=== PATIENT | female | born 1980 | race Caucasian/White ===

== ENCOUNTER → 2016-11-23 | Outpatient (CLI) | payer MEDICAID, OTHER ==
--- NOTE | 2016-11-23 15:10 | US ---
EXAMINATION TYPE: US OB <= 14 wk fetus DATE OF EXAM: 11/23/2016 2:24 PM COMPARISON: NONE CLINICAL HISTORY: Z36 Confirm Dates. Cramping EXAM PERFORMED: Transabdominal (TA) EXAM MEASUREMENTS: GESTATIONAL AGE / DATING Physician Established: not established Dates by LMP: (12 weeks/4 days) EDC: 06/03/17 Dates by First Scan: no prior exam Dates by Current Scan for: (12 weeks/4 days) EDC: 06/03/17 MATERNAL ANATOMY Uterus: 12.2 x 6.3 x 7.3cm Right Ovary: unable to visualize Left Ovary: 2.8 x 1.9 x 2.2cm Post CDS / Adnexa: appears wnl Presence of free fluid: no GESTATION / SURVEY CRL: 6.0cm (12 weeks/4 days) Yolk Sac (normal less than 6mm): 6.2mm Heart Rate: 163 bpm Rhythm: Normal IUP: Viable IUP Date of LMP: 08/27/16 Beta HcG (if available): unavailable TECHNOLOGIST IMPRESSION: Single viable IUP 12wks/4days with GRZEGORZ of 06/03/17. Hypoechoic area body of uterus = 3.7 x 3.7 x 3.6cm, possible fibroid. Unable to visualize right ovary. Yolk sac measuring up per limits of normal IMPRESSION: Viable intrauterine gestation with a gestational age of 12 weeks 4 days +/- 7 days. Estimated date of confinement based on this examination is 06/03/2017.
== END | disposition home or self-care (01) ==
LOC: RADUSWWP 13:59
PROVIDERS: ATTEND Obstetrics & Gynecology
DX: Z36 Encounter for antenatal screening of mother (principal); Z3A.12 12 weeks gestation of pregnancy
CPT/HCPCS: 76801

== ENCOUNTER → 2017-05-03 | Outpatient (CLI) | payer MEDICAID, OTHER ==
--- NOTE | 2017-05-03 12:51 | US ---
EXAMINATION TYPE: US OB anatomy transabd DATE OF EXAM: 05/03/2017 COMPARISON: 01/13/2017 HISTORY: 37-year-old female O36.63X0 LARGE FOR DATES TECHNIQUE: Transabdominal (TA) FINDINGS: EXAM MEASUREMENTS: GESTATIONAL AGE / DATING Physician Established: (36 weeks/0 days) EDC: 05/31/17 Dates by LMP: unknown Dates by First Scan: (35 weeks/4 days) EDC: 06/03/17 Dates by Current Scan for: (36 weeks/4 days) EDC: 05/27/17 SURVEY IUP: Single PLACENTA: Posterior PREVIA: No previa EMELINA: 16.5 cm Normal CERVICAL LENGTH (transabdominal: norm > 3.0cm): 3.9 cm BIOMETRY PRESENTATION: Vertex LIE: Longitudinal BPD: 9.0 cm 36 weeks / 4 days HC: 32.5 cm 36 weeks / 6 days AC: 32.5 cm 36 weeks / 3 days FL: 7.0 cm 36 weeks / 0 days ESTIMATED WEIGHT IN GRAMS: 2910 grams ESTIMATED WEIGHT IN LBS/OZS: 6 lbs. 7 oz. 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 Fibroid anterior uterine body as noted on prior exam, measuring 4.4 x 2.9 x 4.9cm today IMPRESSION: 1. Single live intrauterine with established gestational age of 36 weeks 0 days (as reporte d by the patient). We note some discordance between the established gestational age provided now by t he patient and provided on the ultrasound of 01/13/2017. Clinically correlate. 2. As compared to 01/13/2017, there has been one week more growth than expected, currently measured at 36 weeks 4 days. This places the child at the 61st percentile for weight. 3. A 4.4 cm anterior intramural uterine fibroid redemonstrated.
== END | disposition home or self-care (01) ==
LOC: RADUSWWP 11:00
PROVIDERS: ATTEND Obstetrics & Gynecology
DX: O36.63X0 Maternal care for excessive fetal growth, third trimester, not applicable or unspecified (principal); O34.13 Maternal care for benign tumor of corpus uteri, third trimester; D25.9 Leiomyoma of uterus, unspecified; Z3A.36 36 weeks gestation of pregnancy
CPT/HCPCS: 76811

== ENCOUNTER 2017-06-03 14:01 | Outpatient (CLI) | payer MEDICAID, OTHER ==
[2017-06-03 18:55] VITALS: BP 125/83; PULSE 83; RESP 18; TEMP 98.4
--- NOTE | 2017-06-07 16:36 | P.MSEPDOC ---
Presenting Problems - Arrival Data Date of Arrival on Unit: 06/03/17 Time of Arrival on Unit: 14:00 Mode of Transport: Ambulatory - Complaint OB-Reason for Admission/Chief Complaint: NST Medical History - Information : 1 Para: 0 Term: 0 : 0 Abortions: Spontaneous or Elective: 0 Number of Living Children: 0 - Gestational Age Expected Date of Delivery: 06/03/17 Gestational Age by GRZEGORZ (wks/days): 40 Weeks and 4 Days Review of Systems - Review of Systems Constitutional: No problems Breast: No problems ENT: No problems Cardiovascular: No problems Respiratory: No problems Gastrointestinal: No problems Genitourinary: No problems Musculoskeletal: No problems Neurological: No problems Skin: No problems Comment: scoliosis, varicose vein left leg, 3 crowns orally, Vital Signs - Temperature Temperature: 98.4 F Temperature Source: Oral - Pulse Right Brachial Pulse Rate: 83 Pulse Assessment Method: Automatic Cuff - Respirations Respiratory Rate: 18 Oxygen Delivery Method: Room Air O2 Sat by Pulse Oximetry: 98 - Blood Pressure Right Arm Blood Pressure: 125/83 Blood Pressure Mean: 97 Blood Pressure Source: Automatic Cuff Medical Screen Scoring (Pre) - Cervical Exam Dilation: Exam Deferred Effacement: Exam Deferred - Uterine Contractions Frequency: N/A Duration: N/A Intensity: N/A - Maternal Vital Signs Maternal Temperature: N/A Maternal Blood Pressure: N/A Signs of Preeclampsia: N/A Maternal Respirations: N/A - Maternal Trauma Maternal Trauma: N/A - Assessment Baseline FHR: 130 Heart Rate - NICHD Category: Category I (Normal) = 0 NST: Reactive Position: N/A Station: N/A - Total Score Total Score (Pre): 0 - Level of Risk Level of Risk: Low (0-5) Physician Notification (Pre) - Physician Notified Physician Notified Date: 06/03/17 Physician Notified Time: 15:00 Physician/Practitioner Notifed:: yes Spoke With: emy Ambriz Order Received: Yes - Notification Comment Comment: discharge home after reactive nst. Disposition - Disposition OB Disposition: Discharge to home Transferred to:: home Discharge Date: 06/03/17 Discharge Time: 15:00 I agree with the RN Medical Screening Exam: Yes Risk & Benefit of care provided described in d/c instruction: Yes Diagnosis: RELATED CONDITIONS, UNSPECIFIED, THIRD TRIMESTER
== END 2017-06-03 15:00 | disposition home or self-care (01) ==
LOC: FBPOP 14:01
PROVIDERS: ATTEND Obstetrics & Gynecology
DX: O26.893 Other specified pregnancy related conditions, third trimester (principal); Z3A.40 40 weeks gestation of pregnancy
CPT/HCPCS: 59025; 99213

== ENCOUNTER 2017-06-06 16:02 | Inpatient (IN) | payer MEDICAID, OTHER ==
--- NOTE | 2017-06-06 13:20 | P.HPOB ---
History of Present Illness H&P Date: 06/06/17 Chief Complaint: Induction of labor This is a 37 y.o. female, 1, para 0, with an estimated date of confinement of 06/03/2017, estimated gestational age of 40-3/7 weeks, who presents to L&D for cervidil cervical ripening followed by oxytocin induction of labor. She has been doing twice weekly NSTs for the last week due to post- dates. She denies rupture of membranes. She has irregular contractions and is feeling pressure. course has been essentially uncomplicated. labs: Xaiuvig-nwa-wzvdeb GC/Chlamydia-neg Syphilis antibody-neg Hepatitis B surface antigen-neg Hemoglobin-14.4 Toxoplasma-neg Random glucose-79 Blood type-A+ Antibody screen-neg Quad screen-neg US-normal anatomy, 4.8 cm fibroid 1 hr. 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 Hx: No hx STDs Review of Systems Constitutional: Denies chills, Denies fever Eyes: denies blurred vision, denies pain Ears, nose, mouth and throat: Denies headache, Denies sore throat Cardiovascular: Denies chest pain, Denies shortness of breath Respiratory: Denies cough Gastrointestinal: Reports abdominal pain, Reports heartburn Genitourinary: Reports pelvic pain, Reports Musculoskeletal: Reports low back pain Neurological: Denies numbness, Denies weakness Psychiatric: Denies anxiety, Denies depression Past Medical History Past Medical History: No Reported History Additional Past Surgical History / Comment(s): Laparoscopy-endometriosis Past Psychological History: No Psychological Hx Reported Smoking Status: Never smoker Past Alcohol Use History: None Reported Past Drug Use History: None Reported - Past Family History Mother Family Medical History: Cancer (Breast CA) Father Family Medical History: Diabetes Mellitus Medications and Allergies Home Medications Medication Instructions Recorded Confirmed Type Pnv No.95/Ferrous Fum/Folic AC 1 each PO 06/06/17 History [ Multivitamin Tablet] Allergies Allergy/AdvReac Type Severity Reaction Status Date / Time erythromycin base AdvReac Swelling Verified 06/03/17 18:42 Exam Osteopathic Statement: *. No significant issues noted on an osteopathic structural exam other than those noted in the History and Physical/Consult. HEENT: within normal limits Heart: regular rate and rhythm Lungs: clear to auscultation bilaterally Abdomen: Cervix: Closed/70%/-1 heart tones: reactive Contractions: irregular Extremities: neg. Gerardo's Assessment and Plan (1) Post term over 40 weeks Status: Acute Plan: Proceed with cervidil cervical ripening followed by oxytocin induction of labor. Expectant management. Epidural if desired.
[~2017-06-06 16:02] MED LIST: BUPIVACAINE (PF) 0.25% 30 ML VIAL ONE; SODIUM CHLORIDE 0.9% 100 ML BAG ONE; fentaNYL (PF) 50 MCG/ML 5 ML AMP ONE
[2017-06-06] MEDS ORDERED: DINOPROSTONE 10 MG INSERT.ER VAGINAL ONE (16:08)
[2017-06-06] MEDS ORDERED: ZOLPIDEM 5 MG TAB PO PRN (16:08)
[2017-06-06 16:18] VITALS: BMI 38.9
[2017-06-07] MEDS: BUTORPHANOL 1 MG/ML 1 ML VIAL IV PRN ×4 (00:05→06:20)
[2017-06-07 00:29] LABS: Basophils % (A) 0 %; CH 31.7; CHCM 35.3; Eosinophils % (A) 1 %; HDW 2.91; HGB 13.3 gm/dL (11.4-16.0); Luc # (Auto) 0.19; Luc % (Auto) 2; Lymphocytes # (A) 1.7 k/uL (1.0-4.8); Lymphocytes % (A) 21 %; MCH 30.2 pg (25.0-35.0); MCHC 33.4 g/dL (31.0-37.0); MCV 90.4 fL (80.0-100.0); Mean Platelet Volume 8.9; Monocytes # (A) 0.5 k/uL (0-1.0); Monocytes % (A) 6 %; Neutrophils # (A) 5.9 k/uL (1.3-7.7); Neutrophils % (A) 71 %; RBC 4.42 m/uL (3.80-5.40); RDW 14.6 % (11.5-15.5); WBC 8.3 k/uL (3.8-10.6); WBC (Perox) 8.15
[2017-06-07] MEDS ORDERED: METHYLERGONOVINE 0.2 MG/ML 1 ML AMP IM PRN (03:29)
[2017-06-07] MEDS ORDERED: LIDOCAINE 1% (PF) 10 MG/ML (30 ML SDV) SQ PRN (03:29)
[2017-06-07] MEDS ORDERED: OXYTOCIN 10 UNIT/ML 1 ML VIAL IM PRN (03:29)
[2017-06-07] MEDS ORDERED: CARBOPROST TROMETHAMINE 250 MCG/ML 1 ML AMP IM PRN (03:29)
[2017-06-07] MEDS ORDERED: TERBUTALINE 1 MG/ML VIAL SQ PRN (03:29)
[2017-06-07] MEDS ORDERED: LIDOCAINE 1% 20 ML VIAL (10MG/ML) FOR IV START INTRADERMA PRN (03:29)
[2017-06-07] MEDS ORDERED: OXYTOCIN 20 UNITS/1000 ML NS 1,000 ML IV SCH ×2 (03:29→10:39)
[2017-06-07] MEDS: LACTATED RINGERS 1,000 ML IV SCH ×2 (03:39→07:54)
[2017-06-07] MEDS ORDERED: BUPIVACAINE (PF) 0.25% 25 ML, fentaNYL (PF) 200 MCG in SODIUM CHLORIDE 0.9% 71 ML EPIDURAL ONE (08:08)
[2017-06-07] MEDS ORDERED: BENZOCAINE/MENTHOL SPRAY 1 GM/SPRAY AEROSOL TOPICAL PRN ×2 (10:16→10:39)
[2017-06-07] MEDS ORDERED: SIMETHICONE 80 MG CHEWABLE PO PRN (10:39)
[2017-06-07] MEDS ORDERED: ACETAMINOPHEN TAB 325 MG TAB PO PRN (10:39)
[2017-06-07] MEDS ORDERED: LANOLIN CREAM 5 GM TUBE TOPICAL PRN (10:39)
[2017-06-07] MEDS ORDERED: Acetaminophen-Codeine 300-30mg TAB PO PRN (10:39)
[2017-06-07] MEDS ORDERED: diphenhydrAMINE 50 MG CAP PO PRN (10:39)
[2017-06-07] MEDS ORDERED: WITCH HAZEL 1 EACH MED..PAD TOPICAL PRN (10:39)
[2017-06-07] MEDS ORDERED: HYDROCORTISONE 2.5% RECTAL CREAM 30 GM TUBE RECTAL PRN (10:39)
[2017-06-07] MEDS ORDERED: ZOLPIDEM 5 MG TAB PO PRN (10:39)
[2017-06-07] MEDS ORDERED: diphenhydrAMINE 50 MG/ML 1 ML VIAL IVP PRN ×2 (10:39)
[2017-06-07] MEDS ORDERED: diphenhydrAMINE 25 MG CAP PO PRN (10:39)
[2017-06-07] MEDS ORDERED: MEASLES-MUMPS-RUBELLA VACC/PF 12,500 UNIT/0.5 ML VIAL SQ ONE (10:39)
[2017-06-07] MEDS: IBUPROFEN 600 MG TAB PO PRN ×2 (13:19→19:34)
--- NOTE | 2017-06-07 16:28 | P.PROBDLV ---
Vaginal Delivery Note - . Vaginal Delivery Note: The patient underwent Cervidil cervical ripening last night and then when the Cervidil was removed this morning the nurses stated she was still closed. She started feeling very uncomfortable after the oxytocin was started and was checked and found to be 4 cm/100%/-1 station. No membranes were palpated at that time. She had been involuntarily urinating while she was bearing down and therefore she may have ruptured during that period of time. She did receive epidural anesthesia. Once reaching complete dilation, she began pushing. Infant's head came to a crown. With one further push, the 's head delivered across the perineum followed by the anterior shoulder. Nose and mouth were bulb suctioned at the perineum. With one further push, the remainder the easily delivered and was placed on mother's abdomen. A viable male infant was noted with Apgars of 8 at 1 minute and 9 at 5 minutes and weight of 8 lbs. 11 oz. Placenta delivered shortly thereafter, intact, with a three-vessel cord. Uterus contracted well after oxytocin was given and uterine massage was carried out. Inspection of the perineum revealed a second-degree perineal laceration and a right periurethral laceration. These areas were anesthetized with 1% lidocaine. The right periurethral laceration was sutured with 3-0 Vicryl suture in a running locked fashion. The second- degree laceration was then repaired with 2-0 and 3-0 Vicryl suture in the usual multilayer fashion. Estimated blood loss is approximately 200 mL's. Both mother and infant are in stable condition.
[2017-06-07] MEDS: SENNOSIDES-DOCUSATE SODIUM 1 EACH TAB PO SCH (19:41)
[2017-06-07] MEDS: Acetaminophen-Codeine 300-30mg TAB PO PRN (22:40)
[2017-06-08] MEDS: IBUPROFEN 600 MG TAB PO PRN ×3 (01:36→13:35)
[2017-06-08] MEDS: Acetaminophen-Codeine 300-30mg TAB PO PRN (04:38)
[2017-06-08 07:26] LABS: Basophils % (A) 0 %; CH 31.4; CHCM 34.1; Eosinophils # (A) 0.1 k/uL (0-0.7); Eosinophils % (A) 1 %; HCT 34.4 % (34.0-46.0); HDW 2.86; HGB 11.1 gm/dL (11.4-16.0); Luc # (Auto) 0.17; Luc % (Auto) 2; Lymphocytes # (A) 1.6 k/uL (1.0-4.8); Lymphocytes % (A) 18 %; MCH 30.1 pg (25.0-35.0); MCHC 32.4 g/dL (31.0-37.0); MCV 92.8 fL (80.0-100.0); Mean Platelet Volume 8.8; Monocytes # (A) 0.5 k/uL (0-1.0); Monocytes % (A) 6 %; Neutrophils # (A) 6.6 k/uL (1.3-7.7); Neutrophils % (A) 74 %; RDW 14.7 % (11.5-15.5); WBC 8.9 k/uL (3.8-10.6); WBC (Perox) 9.17
[2017-06-08 07:40] VITALS: BP 106/56; PULSE 75; RESP 14; TEMP 97.8
--- NOTE | 2017-06-08 08:55 | P.DS ---
Providers Date of admission: 06/06/17 16:02 Expected date of discharge: 06/08/17 Attending physician: Jenifer Liu Primary care physician: Stated None - Discharge Diagnosis(es) (1) Post term over 40 weeks Current Visit: Yes Status: Acute Hospital Course: This is a 37-year-old female 1 para 0 with an estimated date of confinement of 06/03/2017, who presents to labor and delivery for Cervidil cervical ripening followed by induction of labor. She underwent Cervidil cervical ripening on 06/06/2017 and it was removed early in the morning. She was very uncomfortable and oxytocin was started. She rapidly made cervical change, received an epidural, and then delivered vaginally a viable male on 06/07/2017 with scores of 8 at 1 minute and 9 at 5 minutes and infant weight of 8 lbs. 11 oz. Her course has been essentially uncomplicated. She is breast-feeding. Lochia is decreasing. Pain is well- controlled with ibuprofen and Tylenol 3. I'll signs are stable. Abdomen is soft with fundus firm and nontender. Extremities show negative Homans. Impression is status post vaginal delivery day #1. Plan is to discharge home today. Routine instructions are given. She will be given prescriptions for ibuprofen, Tylenol 3, and a breast pump. She is advised to follow up in the office in 6 weeks for check. She is advised to call the office if she has any further questions or concerns prior to her appointment time. Procedures: Cervidil cervical ripening on 06/06/2017 Oxytocin induction of labor Spontaneous vaginal delivery of a viable male infant on 06/07/2017 Patient Condition at Discharge: Stable Plan - Discharge Summary New Discharge Prescriptions: New Acetaminophen-Codeine 300-30mg [Tylenol w/codeine #3] 1 each PO Q4HR PRN #30 tab PRN Reason: Mild Pain exceeding Tylenol Ibuprofen [Motrin] 600 mg PO Q6HR PRN #60 tab PRN Reason: Mild Pain Or Fever >= 100.5 Continue Pnv No.95/Ferrous Fum/Folic AC [ Multivitamin Tablet] 1 each PO Discharge Medication List Pnv No.95/Ferrous Fum/Folic AC [ Multivitamin Tablet] 1 each PO [History] Acetaminophen-Codeine 300-30mg [Tylenol w/codeine #3] 1 each PO Q4HR PRN #30 tab 06/08/17 [Rx] Ibuprofen [Motrin] 600 mg PO Q6HR PRN #60 tab 06/08/17 [Rx] Follow up Appointment(s)/Referral(s): Jenifer Liu DO [Doctor of Osteopathic Medicine] - 6 Weeks Activity/Diet/Wound Care/Special Instructions: Instructions 1. Do not begin any exercise program for 3 weeks. 2. Do not resume sexual relations for 3 weeks or longer if uncomfortable. 3. You may take tub baths or showers at any time. 4. You may use tampons if desired after 3 weeks. 5. Keep the area of episiotomy (stitches) clean and dry. 6. If you are not nursing, wear a good fitting, supportive bra during the day and limit fluid intake for at least 1 week to prevent breast engorgement. 7. Call the office, [phone], within the next week to make appointment for your 6 week checkup if it has not already been made. 8. Report any of the following occurrences to the doctor promptly: a. Heavy, excessive bleeding b. Chills, fever c. Burning or frequency of urination d. Pain or redness and breasts if nursing e. Increasing pain or swelling in episiotomy (stitches). In addition to the above instructions, the following additional should be followed: 1. No heavy lifting or straining (exercising) until after 6 week checkup. 2. Keep abdominal incision clean and dry: You may wear a dressing if more comfortable. 3. Make office appointment for 10 days after going home or as instructed by her doctor. Discharge Disposition: HOME SELF-CARE
[2017-06-08] MEDS: SENNOSIDES-DOCUSATE SODIUM 1 EACH TAB PO SCH (10:52)
== END 2017-06-08 14:55 | disposition home or self-care (01) | DRG 775 ==
LOC: 4FBP 16:02
PROVIDERS: ADMIT Obstetrics & Gynecology; ATTEND Obstetrics & Gynecology
PROC: 10E0XZZ Delivery of Products of Conception, External Approach (ICD-10-PCS; principal; 2017-06-07)
PROC: 0UQMXZZ Repair Vulva, External Approach (ICD-10-PCS; 2017-06-07)
PROC: 3E0P7GC Introduction of Other Therapeutic Substance into Female Reproductive, Via Natural or Artificial Opening (ICD-10-PCS; 2017-06-07)
PROC: 3E0134Z Introduction of Serum, Toxoid and Vaccine into Subcutaneous Tissue, Percutaneous Approach (ICD-10-PCS; 2017-06-07)
PROC: 00HU33Z Insertion of Infusion Device into Spinal Canal, Percutaneous Approach (ICD-10-PCS; 2017-06-07)
PROC: 3E0R3CZ (ICD-10-PCS; 2017-06-07)
DX: O48.0 Post-term pregnancy (principal); O70.1 Second degree perineal laceration during delivery; O71.82 Other specified trauma to perineum and vulva; Z37.0 Single live birth; Z3A.40 40 weeks gestation of pregnancy; Z23 Encounter for immunization; Z79.899 Other long term (current) drug therapy
CPT/HCPCS: 85025; 88307; 90707